=== PATIENT | female | born 1995 | race Caucasian/White ===

== ENCOUNTER 2025-01-28 17:20 | Emergency (ER) | payer BC, OTHER ==
[~2025-01-28] VITALS: Ht 170.2 cm; Wt 69.6 kg
[2025-01-28 17:23] VITALS: BP 149/79; PULSE 76; RESP 18; O2SAT 97
--- NOTE | 2025-01-28 19:30 | Physician Documentation ---
History of Present Illness ~ Chief Complaint: Back Pain Stated Complaint: BACK PAIN Time Seen by MD: 17:44 Primary Medical Doctor: none HPI The patient is seen today with complaints of left-sided sciatica for one week. 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 Patient states she is stretching regularly but states she had a long flight recently from here to [facility] and back and states after that her sciatica was flared up significantly. Patient states she has significant sciatic all the way down from her buttocks to her foot on the left lateral side end of the left leg. She denies any saddle anesthesia or low back pain or changes in bowel or bladder habits. She has no other concern or complaint at this time. Medication Reconciliation Scheduled Prednisone (Prednisone), 0 PO DAILY Review of Systems Constitutional: Denies: chills, fever, weakness Eyes: Denies: pain, blurred vision ENT: Denies: ear pain, nose pain, throat pain, mouth pain Respiratory: Denies: cough, shortness of breath Cardiovascular: Denies: chest pain, palpitations Gastrointestinal: Denies: abdominal pain, nausea, vomiting Genitourinary: Denies: burning, dysuria Female Genitalia: Denies: vaginal discharge, pelvic pain Neurological: Denies: headache, dizziness Musculoskeletal: Denies: pain, swelling Integumentary: Denies: rash, lesions Allergic/Immunologic: Denies: hives, itching Hematologic/Lymphatic: Denies: no symptoms reported Psychiatric: Denies: depression, anxiety Physical Exam Physical Exam Vital Signs: Temperature: 98.8, Source: Temporal, Heart Rate: 76, Respiratory Rate: 18, BP: 149/79, Pulse Oximetry: 97, Weight: 69.600 Physical Exam General: Awake and Alert, no acute distress. HEENT: Conjunctiva pink, Sclera clear, Mucus Membranes moist. Neck: Supple without masses and tenderness. Resp: Unlabored. Lungs clear to auscultation bilaterally. Heart: Regular Rate and rhythm, normal S1 and S2 without murmur, rub or gallop. Musculoskeletal: Patient on exam does have positive straight leg raise test of the left leg only. Patient is neurovascularly intact distally. Motor function is intact distally. Range of motion of lumbar spine is full in all planes of motion. Extremities: No cyanosis,clubbing or edema. Skin: Warm and Dry. Progress Results/Orders Results/Orders Orders - KRYSTLE ONOFRE Dexamethasone Inj (Decadron 10mg/Ml Inj) (01/28/25 19:29) Vital Signs 01/28/25 17:23 Temp 98.8 Pulse 76 Resp 18 B/P (MAP) 149/79 Pulse Ox 97 Medical Decision Making Findings The patient is seen today with complaints of left-sided sciatica for one week. 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 Patient states she is stretching regularly but states she had a long flight recently from here to [facility] and back and states after that her sciatica was flared up significantly. Patient states she has significant sciatic all the way down from her buttocks to her foot on the left lateral side end of the left leg. She denies any saddle anesthesia or low back pain or changes in bowel or bladder habits. She has no other concern or complaint at this time. Decadron 10 mg IM given today in the ED. Prescription for prednisone taper sent to patient's pharmacy to be taken as directed. Patient will follow up with primary care in 2-5 days if no better as needed sooner. Return to ED with any worsening, concerning or changing symptoms. Differential Dx:Considerations: Include: DJD, Fracture, Hepatitis, Musculoskeletal pain, Pyelonephritis, Urinary obstruction Departure Disposition: 01 HOME / SELF CARE / HOMELESS Impression: Primary Impression: Sciatica Qualified Codes: M54.32 - Sciatica, left side Condition: Stable Discharge Instructions: Sciatica Additional Instructions: Decadron 10 mg IM given today in the ED. Prescription for prednisone taper sent to patient's pharmacy, [facility] in [place], to be taken as directed. Patient will follow up with primary care in 2-5 days if no better as needed sooner. Return to ED with any worsening, concerning or changing symptoms. Referrals: NO PRIMARY CARE PROVIDER (PCP) Prescriptions Prednisone (Prednisone) 10 Mg Tablet 0 PO DAILY, #42 TAB Take 4 tabs daily x4 days, then 3 daily x4 days 2 daily x4 days 1 daily x4 days 1/2 daily x4 days then STOP Prov: KRYSTLE ONOFRE 01/28/25 Signature Scribe Signature: No scribe Attestation: No scribe KRYSTLE ONOFRE January 28, 2025 19:30
[2025-01-28] MEDS ORDERED: PRED10TA23 PO (19:59)
[2025-01-28 20:01] VITALS: TEMP 98.8
[2025-01-28] MEDS: dexamethasone sod phosphate 10mg/ml inj IM STA (20:22)
== END 2025-01-28 20:23 | disposition home or self-care (01) ==
LOC: ER 17:21
DX: M54.32 Sciatica, left side (principal); Z79.52 Long term (current) use of systemic steroids
CPT/HCPCS: 96372; 99283; J1100